=== PATIENT | female | born 1955 | race Caucasian/White ===

== ENCOUNTER 2024-09-01 07:44 | Day surgery (SDC) | payer BC, MEDICARE, SELFPAY ==
[~2024-09-01 07:44] MED LIST: Lactated Ringers 1,000 ML IV SCH; Sodium Chloride 0.9% 10 ML Syringe FLUSH PRN
[2024-09-01] MEDS ORDERED: Sodium Chloride 0.9% 10 ML Syringe FLUSH PRN (07:45)
[2024-09-01] MEDS ORDERED: Propofol 200 MG/20 ML SDV IV ONE (07:45)
[2024-09-01] MEDS: Lactated Ringers 1,000 ML IV SCH (08:30)
[2024-09-01 09:00] VITALS: BP 162/81; PULSE 64
[2024-09-01] MEDS: Simethicone Drops 40 MG/0.6 ML 30 ML Bottle ONE (09:13)
== END 2024-09-01 10:25 | disposition home or self-care (01) ==
LOC: FB.SDS 07:44
PROVIDERS: ATTEND Surgery
DX: D12.6 Benign neoplasm of colon, unspecified (principal); I10 Essential (primary) hypertension; E78.00 Pure hypercholesterolemia, unspecified; F41.9 Anxiety disorder, unspecified; F32.A Depression, unspecified; Z87.891 Personal history of nicotine dependence; Z79.899 Other long term (current) drug therapy; Z88.0 Allergy status to penicillin
CPT/HCPCS: 00811; 45385; 88305; A9270; J2704; J7120